=== PATIENT | female | born 1985 | race Caucasian/White ===

== ENCOUNTER 2018-01-06 15:41 | Emergency (ER) | payer BC ==
--- NOTE | 2018-01-06 15:54 | EDM.PDOC ---
ED HPI GENERAL MEDICAL PROBLEM - General Chief Complaint: Abdominal Pain Stated Complaint: ABDOMINAL PAIN Time Seen by Provider: 01/06/18 15:44 Source of Information: Reports: Patient History Limitations: Reports: No Limitations - History of Present Illness INITIAL COMMENTS - FREE TEXT/NARRATIVE: HISTORY AND PHYSICAL: History of present illness: Patient is a 32-year-old female who presents to the emergency room with complaints of fatigue, epigastric pain that radiates into the sternum, generalized abdominal pain, nausea, and sore throat. Prior to coming to our emergency room she was at the [facility] office with Dr. Vaz, as she was having a preoperative exam to have a hysterectomy (scheduled in 2 weeks due to her endometriosis). She denies any headache, fever, chills, near syncope, shortness of breath, vomiting or diarrhea. States she has had a decrease in appetite, but is still eating and drinking appropriately. No urinary or bowel complaints or concerns. Has not received the influenza vaccine this year. Review of systems: As per history of present illness and below otherwise all systems reviewed and negative. Past medical history: As per history of present illness and as reviewed below otherwise noncontributory. Surgical history: As per history of present illness and as reviewed below otherwise noncontributory. Social history: No reported history of drug or alcohol abuse. Family history: As per history of present illness and as reviewed below otherwise noncontributory. Physical exam: General: Well-developed and well-nourished 32-year-old female. Alert and oriented. Nontoxic appearing and in no acute distress. HEENT: Atraumatic, normocephalic, pupils reactive, negative for conjunctival pallor or scleral icterus, mucous membranes moist, throat clear, neck supple, nontender, trachea midline. Lungs: Clear to auscultation, breath sounds equal bilaterally, chest nontender. Heart: S1S2, regular rate and rhythm without overt murmur. Abdomen: Soft, nondistended, mild tenderness to the left lower quadrant with palpation (she reports always tender there as "this is where my endometriosis flairs up at"). Negative for masses or hepatosplenomegaly. Negative for costovertebral tenderness. Pelvis: Stable nontender. Genitourinary: Deferred. Rectal: Deferred. Extremities: Atraumatic, moves all extremities per self without difficulty or deficits, negative for cords or calf pain. Neurovascular unremarkable. Neuro: Awake, alert, oriented. Cranial nerves II through XII unremarkable. Cerebellum unremarkable. Motor and sensory unremarkable throughout. Exam nonfocal. CBC, CMP, H pylori, lipase, UA, mono, and troponin are normal and within normal limits. Amylase is slightly elevated at 94. EKG shows no significant findings, normal sinus rhythm. Influenza and strep screen are negative. CXR shows no evidence of pneumonia or infiltrate. Vital signs remain stable. Pain has improved and she feels slightly better with pain at a 2/10. As the patient has no specific abdominal pain, except in the LLQ (which she reports is chronic) - NO CT is needed at this time. Pt agrees. Lab results were shared with the patient. She states she feels comfortable going home at this time. Encouraged her to get plenty of rest, drink fluids and take over-the- counter omeprazole daily until she follows up with Dr Vaz before her surgery. We'll prescribe Zofran as needed for nausea. Diagnostics: CBC, CMP, amylase, lipase, troponin, lipase, h.pylori, EKG, influenza, strep, mono-spot Therapeutics: IV fluid, GI cocktail, Toradol Impression: 1) Abdominal pain, non-specific 2) Viral Illness Plan: 1. Today's lab work was within normal limits. Your symptoms appear to be viral in nature. I would like to take a proton pump inhibitor such as Prilosec or Omeprozole daily. Divide diet for the next 24-48 hours. Increase your oral fluids. Did prescribe Zofran for nausea. You may take one tab every 6 hours as needed. 2. Keep your follow-up appointment with Dr. Vaz for your scheduled Hysterectomy. 3. Return to the ED as needed and as discussed. Definitive disposition and diagnosis as appropriate pending reevaluation and review of above. Duration: Day(s): Location: Reports: Abdomen Mid Sternal Chest Pain/Epigastric Pain Score (Numeric/FACES): 5 - Related Data Allergies Allergy/AdvReac Type Severity Reaction Status Date / Time No Known Allergies Allergy Verified 01/06/18 15:59 Home Meds: Home Meds Ondansetron [Zofran ODT] 4 mg PO Q6H PRN #6 tab.dis 01/06/18 [Rx] Past Medical History [facility] History: Reports: Endometriosis, Other OB/BYN History: laparoscopy X 2 Endocrine/Metabolic History: Reports: Obesity/BMI 30+ - Past Surgical History Female Surgical History: Reports: Tubal Ligation Social & Family History - Tobacco Use Smoking Status *Q: Never Smoker Second Hand Smoke Exposure: No - Alcohol Use Days Per Week of Alcohol Use: 0 - Recreational Drug Use Recreational Drug Use: No ED ROS GENERAL - Review of Systems Review Of Systems: ROS reveals no pertinent complaints other than HPI. ED EXAM, GI/ABD - Physical Exam Exam: See Below (See dictation) Course - Vital Signs Last Recorded V/S: Last Vital Signs Temp 99.0 F 01/06/18 17:09 Pulse 82 01/06/18 17:09 Resp 16 01/06/18 17:09 BP 123/67 01/06/18 17:09 Pulse Ox 100 01/06/18 17:09 - Orders/Labs/Meds Orders: Active Orders 24 hr Category Date Time Status EKG Documentation Completion [RC] STAT Care 01/06/18 15:58 Active Chest 1V Frontal [CR] Stat Exams 01/06/18 16:16 Taken CULTURE STREP A CONFIRMATION [RM] Stat Lab 01/06/18 15:45 Results STREP SCRN A RAPID W CULT CONF [RM] Stat Lab 01/06/18 15:45 Results Labs: Laboratory Tests 01/06/18 01/06/18 01/06/18 Range/Units 16:08 16:08 16:08 WBC 4.25 (4.0-11.0) K/uL RBC 4.61 (4.30-5.90) M/uL Hgb 13.7 (12.0-16.0) g/dL Hct 39.8 (36.0-46.0) % MCV 86.3 (80.0-98.0) fL MCH 29.7 (27.0-32.0) pg MCHC 34.4 (31.0-37.0) g/dL RDW Std Deviation 40.9 (28.0-62.0) fl RDW Coeff of Katie 13 (11.0-15.0) % Plt Count 179 (150-400) K/uL MPV 10.20 (7.40-12.00) fL Neut % (Auto) 45.0 L (48.0-80.0) % Lymph % (Auto) 38.6 (16.0-40.0) % Gray % (Auto) 14.1 (0.0-15.0) % Eos % (Auto) 2.1 (0.0-7.0) % Baso % (Auto) 0.2 (0.0-1.5) % Neut # (Auto) 1.9 (1.4-5.7) K/uL Lymph # (Auto) 1.6 (0.6-2.4) K/uL Gray # (Auto) 0.6 (0.0-0.8) K/uL Eos # (Auto) 0.1 (0.0-0.7) K/uL Baso # (Auto) 0.0 (0.0-0.1) K/uL Nucleated RBC % 0.0 /100WBC Nucleated RBCs # 0 K/uL Sodium 140 (136-146) mmol/L Potassium 3.5 (3.5-5.1) mmol/L Chloride 110 (98-110) mmol/L Carbon Dioxide 22 (21-31) mmol/L BUN 5 L (6.0-23.0) mg/dL Creatinine 0.7 (0.6-1.5) mg/dL Est Cr Clr Drug Dosing 102.86 mL/min Estimated GFR (MDRD) > 60.0 ml/min Glucose 81 (60-110) mg/dL Calcium 9.4 (8.8-10.8) mg/dL Total Bilirubin 0.5 (0.1-1.5) mg/dL AST 24 (5-40) IU/L ALT 18 (8-54) IU/L Alkaline Phosphatase 65 (40-150) Troponin I (0.0-0.29) NG/ML Total Protein 7.2 (6.0-8.0) g/dL Albumin 4.1 (3.5-5.0) g/dL Globulin 3.1 (2.0-3.5) g/dL Albumin/Globulin Ratio 1.3 (1.3-2.8) Amylase 94 H (10-90) U/L Lipase 38 (7-80) U/L Urine Color Urine Appearance Urine pH (5.0-8.0) Ur Specific Reva (1.001-1.035) Urine Protein (NEGATIVE) mg/dL Urine Glucose (UA) (NEGATIVE) mg/dL Urine Ketones (NEGATIVE) mg/dL Urine Occult Blood (NEGATIVE) Urine Nitrite (NEGATIVE) Urine Bilirubin (NEGATIVE) Urine Urobilinogen (<2.0) EU/dL Ur Leukocyte Esterase (NEGATIVE) Urine RBC (0-2/HPF) Urine WBC (0-5/HPF) Ur Epithelial Cells (NONE-FEW) Urine Bacteria (NEGATIVE) Urine Mucus (NONE-MOD) H. pylori IgG Antibody NEGATIVE (NEG) Monoscreen (NEG) 01/06/18 01/06/18 01/06/18 Range/Units 16:08 16:08 16:39 WBC (4.0-11.0) K/uL RBC (4.30-5.90) M/uL Hgb (12.0-16.0) g/dL Hct (36.0-46.0) % MCV (80.0-98.0) fL MCH (27.0-32.0) pg MCHC (31.0-37.0) g/dL RDW Std Deviation (28.0-62.0) fl RDW Coeff of Katie (11.0-15.0) % Plt Count (150-400) K/uL MPV (7.40-12.00) fL Neut % (Auto) (48.0-80.0) % Lymph % (Auto) (16.0-40.0) % Gray % (Auto) (0.0-15.0) % Eos % (Auto) (0.0-7.0) % Baso % (Auto) (0.0-1.5) % Neut # (Auto) (1.4-5.7) K/uL Lymph # (Auto) (0.6-2.4) K/uL Gray # (Auto) (0.0-0.8) K/uL Eos # (Auto) (0.0-0.7) K/uL Baso # (Auto) (0.0-0.1) K/uL Nucleated RBC % /100WBC Nucleated RBCs # K/uL Sodium (136-146) mmol/L Potassium (3.5-5.1) mmol/L Chloride (98-110) mmol/L Carbon Dioxide (21-31) mmol/L BUN (6.0-23.0) mg/dL Creatinine (0.6-1.5) mg/dL Est Cr Clr Drug Dosing mL/min Estimated GFR (MDRD) ml/min Glucose (60-110) mg/dL Calcium (8.8-10.8) mg/dL Total Bilirubin (0.1-1.5) mg/dL AST (5-40) IU/L ALT (8-54) IU/L Alkaline Phosphatase (40-150) Troponin I < 0.10 (0.0-0.29) NG/ML Total Protein (6.0-8.0) g/dL Albumin (3.5-5.0) g/dL Globulin (2.0-3.5) g/dL Albumin/Globulin Ratio (1.3-2.8) Amylase (10-90) U/L Lipase (7-80) U/L Urine Color YELLOW Urine Appearance CLEAR Urine pH 7.0 (5.0-8.0) Ur Specific Reva 1.010 (1.001-1.035) Urine Protein NEGATIVE (NEGATIVE) mg/dL Urine Glucose (UA) NEGATIVE (NEGATIVE) mg/dL Urine Ketones TRACE H (NEGATIVE) mg/dL Urine Occult Blood NEGATIVE (NEGATIVE) Urine Nitrite NEGATIVE (NEGATIVE) Urine Bilirubin NEGATIVE (NEGATIVE) Urine Urobilinogen 0.2 (<2.0) EU/dL Ur Leukocyte Esterase NEGATIVE (NEGATIVE) Urine RBC NONE SEEN (0-2/HPF) Urine WBC 0-1 (0-5/HPF) Ur Epithelial Cells RARE (NONE-FEW) Urine Bacteria RARE (NEGATIVE) Urine Mucus LIGHT (NONE-MOD) H. pylori IgG Antibody (NEG) Monoscreen NEGATIVE (NEG) Meds: Medications Discontinued Medications Generic Name Dose Route Start Last Admin Trade Name Freq PRN Reason Stop Dose Admin Al Hydroxide/Mg Hydroxide 15 0 ml 01/06/18 15:58 01/06/18 16:10 ml/ Lidocaine HCl 5 ml PO 01/06/18 15:59 20 each ONETIME ONE Administration Sodium Chloride 1,000 mls @ 999 mls/hr 01/06/18 15:58 01/06/18 16:10 Normal Saline IV 01/06/18 16:58 999 mls/hr STAT ONE Administration Ketorolac Tromethamine 30 mg 01/06/18 17:17 01/06/18 17:26 Toradol IVPUSH 02/07/18 17:18 Not Given ONETIME ONE Departure - Departure Time of Disposition: 17:30 Disposition: Home, Self-Care 01 Clinical Impression: Pain, abdominal, nonspecific, Viral illness - Discharge Information Prescriptions: Ondansetron [Zofran ODT] 4 mg PO Q6H PRN #6 tab.dis PRN Reason: Nausea Referrals: Pio Henry MD [Primary Care Provider] - Forms: ED Department Discharge Additional Instructions: My general discharge The following information is given to patients seen in the emergency department who are being discharged to home. This information is to outline your options for follow-up care. We provide all patients seen in our emergency department with a follow-up referral. The need for follow-up, as well as the timing and circumstances, are variable depending upon the specifics of your emergency department visit. If you don't have a primary care physician on staff, we will provide you with a referral. We always advise you to contact your personal physician following an emergency department visit to inform them of the circumstance of the visit and for follow-up with them and/or the need for any referrals to a consulting specialist. The emergency department will also refer you to a specialist when appropriate. This referral assures that you have the opportunity for follow-up care with a specialist. All of these measure are taken in an effort to provide you with optimal care, which includes your follow-up. Under all circumstances we always encourage you to contact your private physician who remains a resource for coordinating your care. When calling for follow-up care, please make the office aware that this follow-up is from your recent emergency room visit. If for any reason you are refused follow-up, please contact the [facility] Emergency Department at and asked to speak to the emergency department charge nurse. [facility] [address] [place] [id number] 1. Today's lab work was within normal limits. Your symptoms appear to be viral in nature. I would like to take a proton pump inhibitor such as Prilosec or Omeprozole daily. Divide diet for the next 24-48 hours. Increase your oral fluids. Zofran was prescribed for nausea. You may take one tab every 6 hours as needed. 2. Keep your follow-up appointment with Dr. Vaz for your scheduled Hysterectomy. 3. Return to the ED as needed and as discussed. - My Orders Last 24 Hours: My Active Orders 01/06/18 15:45 CULTURE STREP A CONFIRMATION [RM] Stat STREP SCRN A RAPID W CULT CONF [RM] Stat 01/06/18 15:58 EKG Documentation Completion [RC] STAT 01/06/18 16:16 Chest 1V Frontal [CR] Stat - Assessment/Plan Last 24 Hours: My Active Orders 01/06/18 15:45 CULTURE STREP A CONFIRMATION [RM] Stat STREP SCRN A RAPID W CULT CONF [RM] Stat 01/06/18 15:58 EKG Documentation Completion [RC] STAT 01/06/18 16:16 Chest 1V Frontal [CR] Stat
[2018-01-06] MEDS ORDERED: Sodium Chloride 0.9% 1,000 ML IV ONE (15:58)
[2018-01-06] MEDS ORDERED: Alum Hydrox/Mag Hydrox/Simeth 15 ML, Lidocaine 2% 5 ML PO ONE ×2 (15:58)
[2018-01-06 16:44] LABS: CHLORIDE,CL 110 mmol/L (98-110); SODIUM,NA 140 mmol/L (136-146)
[2018-01-06] MEDS ORDERED: Ketorolac 30 MG/ML SDV IVPUSH ONE (17:17)
[2018-01-06 17:55] VITALS: BP 121/83
--- NOTE | 2018-01-07 09:31 | CR ---
EXAM DATE: 01/06/18 PATIENT'S AGE: 32 Patient: SAIDA BOLANOS Facility: [place], [place] Site . Site : 1985 Study: XRay Chest [id number]/7/2018 4:43:04 PM Ordering Physician: Doctor Cardona Final Report: HISTORY: Chest pain. FINDINGS: AP chest radiograph demonstrates low lung volumes. The cardiac silhouette is normal. No lobar consolidation or pleural effusion is seen. IMPRESSION: No acute cardiopulmonary disease. Dictated by Hali Oneal MD @ 01/06/2018 4:47:11 PM Dictated by: Hali Oneal MD @ 01/06/2018 16:47:16 (Electronic Signature) Report Signed by Proxy. [facility]ITAL[facility]
== END 2018-01-06 18:00 | disposition home or self-care (01) ==
LOC: MW.ED 15:41
DX: B34.9 Viral infection, unspecified (principal)
CPT/HCPCS: 36415; 71045; 80053; 81001; 82150; 83690; 84484; 85025; 86308; 86677; 87081; 87804; 87880; 96360; 99285; A9270; J7040; 99284

== ENCOUNTER 2018-01-19 07:41 | Observation (INO) | payer BC ==
[2018-01-18 16:26] LABS: CHLORIDE,CL 109 mmol/L (98-110); SODIUM,NA 140 mmol/L (136-146)
[~2018-01-19 07:41] MED LIST: Bupivacaine 0.25% 10 ML SDV ONE; Lidocaine 2% 5 ML SDV ONE; Methylene Blue 50 MG/10 ML Ampule ONE; Midazolam 1 MG/ML 2 ML SDV ONE; Ondansetron 4 MG/2 ML SDV ONE; Propofol 200 MG/20 ML SDV ONE; Rocuronium 10 MG/ML 10 ML Syringe ONE; Sodium Chloride 0.9% 10 ML Syringe FLUSH PRN; Sodium Chloride 0.9% 2.5 ML Syringe FLUSH PRN; ceFAZolin 2 GM in Premix Bag 1 BAG IV ONE; fentaNYL 250 MCG/5 ML SDV ONE
[2018-01-19] MEDS: Lactated Ringers 1,000 ML IV SCH ×2 (08:02→16:33)
[2018-01-19] MEDS ORDERED: Scopolamine 1.5 MG Transdermal Patch TRDERM PRN (08:27)
--- NOTE | 2018-01-19 08:30 | PCM.PREANE ---
Preanesthetic Assessment - Anesthesia/Transfusion/Family Hx Anesthesia History: Prior Anesthesia Without Reaction Family History of Anesthesia Reaction: No Transfusion History: No Prior Transfusion(s) Intubation History: Unknown - Review of Systems General: No Symptoms Pulmonary: No Symptoms Cardiovascular: No Symptoms Gastrointestinal: No Symptoms Neurological: No Symptoms Other: Reports: None - Physical Assessment NPO Status Date: 01/18/18 NPO Status Time: 20:00 O2 Sat by Pulse Oximetry: 98 Respiratory Rate: 16 Vital Signs: Last Vital Signs Temp 36.9 C 01/19/18 07:58 Pulse 81 01/19/18 07:58 Resp 16 01/19/18 07:58 BP 119/73 01/19/18 07:58 Pulse Ox 98 01/19/18 07:58 Height: 1.64 m Weight: 93.44 kg ASA Class: 2 Mental Status: Alert & Oriented x3 Airway Class: Mallampati = 2 Dentition: Reports: Normal Dentition Thyro-Mental Finger Breadths: 3 Mouth Opening Finger Breadths: 2 ROM/Head Extension: Full Lungs: Clear to Auscultation, Normal Respiratory Effort Cardiovascular: Regular Rate, Regular Rhythm - Lab Values: Laboratory Last Values WBC 6.71 K/uL (4.0-11.0) 01/18/18 15:50 RBC 4.96 M/uL (4.30-5.90) 01/18/18 15:50 Hgb 15.1 g/dL (12.0-16.0) 01/18/18 15:50 Hct 42.8 % (36.0-46.0) 01/18/18 15:50 MCV 86.3 fL (80.0-98.0) 01/18/18 15:50 MCH 30.4 pg (27.0-32.0) 01/18/18 15:50 MCHC 35.3 g/dL (31.0-37.0) 01/18/18 15:50 RDW Std Deviation 41.1 fl (28.0-62.0) 01/18/18 15:50 RDW Coeff of Katie 13 % (11.0-15.0) 01/18/18 15:50 Plt Count 232 K/uL (150-400) 01/18/18 15:50 MPV 10.20 fL (7.40-12.00) 01/18/18 15:50 Nucleated RBC % 0.0 /100WBC 01/18/18 15:50 Nucleated RBCs # 0 K/uL 01/18/18 15:50 Sodium 140 mmol/L (136-146) 01/18/18 15:50 Potassium 3.6 mmol/L (3.5-5.1) 01/18/18 15:50 Chloride 109 mmol/L (98-110) 01/18/18 15:50 Carbon Dioxide 22 mmol/L (21-31) 01/18/18 15:50 BUN 7 mg/dL (6.0-23.0) 01/18/18 15:50 Creatinine 0.7 mg/dL (0.6-1.5) 01/18/18 15:50 Est Cr Clr Drug Dosing TNP 01/18/18 15:50 Estimated GFR (MDRD) > 60.0 ml/min 01/18/18 15:50 Glucose 93 mg/dL (60-110) 01/18/18 15:50 Calcium 9.0 mg/dL (8.8-10.8) 01/18/18 15:50 HCG, Qual NEGATIVE (NEG) 01/18/18 15:50 Blood Type A POSITIVE 01/18/18 15:50 Antibody Screen NEGATIVE 01/18/18 15:50 - Allergies Allergies/Adverse Reactions: Allergies Allergy/AdvReac Type Severity Reaction Status Date / Time No Known Allergies Allergy Verified 01/13/18 12:54 - Blood Blood Available: No - Anesthesia Plan Pre-Op Medication Ordered: None - Acknowledgements Anesthesia Type Planned: General Anesthesia Pt an Appropriate Candidate for the Planned Anesthesia: Yes Alternatives and Risks of Anesthesia Discussed w Pt/Guardian: Yes Pt/Guardian Understands and Agrees with Anesthesia Plan: Yes PreAnesthesia Questionnaire HEENT History: Reports: Other (See Below) Other HEENT History: wears glasses Gastrointestinal History: Reports: Other (See Below) Other Gastrointestinal History: occasional heartburn Genitourinary History: Reports: None 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, Other OB/BYN History: laparoscopy X 2 Neurological History: Reports: Seizure Other Neuro History: seizures as a child Endocrine/Metabolic History: Reports: Obesity/BMI 30+ - Past Surgical History Head Surgeries/Procedures: Reports: None GI Surgical History: Reports: Colonoscopy (x2), EGD Female Surgical History: Reports: Tubal Ligation Other Female Surgeries/Procedures: laparoscopy x2 for endometriosis - SUBSTANCE USE Smoking Status *Q: Never Smoker Second Hand Smoke Exposure: No Days Per Week of Alcohol Use: 0 Recreational Drug Use History: No - HOME MEDS Home Medications: Home Meds Magnesium 1 tab PO DAILY 01/13/18 [History] Multivitamin [Multivitamins] 1 tab PO DAILY 01/13/18 [History] - CURRENT (IN HOUSE) MEDS Current Meds: Current Medications Lactated Ringer's (Ringers, Lactated) 1,000 mls @ 125 mls/hr IV ASDIRECTED MILLICENT Last Admin: 01/19/18 08:02 Dose: 125 mls/hr Sodium Chloride (Saline Flush) 10 ml FLUSH ASDIRECTED PRN PRN Reason: Keep Vein Open Sodium Chloride (Saline Flush) 2.5 ml FLUSH ASDIRECTED PRN PRN Reason: Keep Vein Open Discontinued Medications Bupivacaine HCl (Sensorcaine-Mpf 0.25%) Confirm Administered Dose 20 ml .ROUTE .STK-MED ONE Stop: 01/19/18 07:23 Fentanyl (Sublimaze) Confirm Administered Dose 250 mcg .ROUTE .STK-MED ONE Stop: 01/19/18 07:07 Cefazolin Sodium/Dextrose 2 gm (/ Premix) 50 mls @ 100 mls/hr IV ONETIME ONE Stop: 01/19/18 06:29 Lidocaine (Xylocaine-Mpf 2%) Confirm Administered Dose 5 ml .ROUTE .STK-MED ONE Stop: 01/19/18 07:07 Methylene Blue (Provayblue) Confirm Administered Dose 50 mg .ROUTE .STK-MED ONE Stop: 01/19/18 07:23 Midazolam HCl (Versed 1 Mg/Ml) Confirm Administered Dose 2 mg .ROUTE .STK-MED ONE Stop: 01/19/18 07:07 Ondansetron HCl (Zofran) Confirm Administered Dose 4 mg .ROUTE .STK-MED ONE Stop: 01/19/18 07:07 Propofol (Diprivan 20 Ml) Confirm Administered Dose 200 mg .ROUTE .STK-MED ONE Stop: 01/19/18 07:07 Rocuronium Reading (Zemuron) Confirm Administered Dose 100 mg .ROUTE .STK-MED ONE Stop: 01/19/18 07:07
[2018-01-19] MEDS ORDERED: Scopolamine 1.5 MG Transdermal Patch ONE (08:38)
[2018-01-19] MEDS ORDERED: ceFAZolin 1 GM Vial ONE (08:53)
[2018-01-19] MEDS ORDERED: diphenhydrAMINE 50 MG/ML SDV ONE (08:55)
[2018-01-19] MEDS ORDERED: Dexamethasone 4 MG/ML 5 ML MDV ONE (08:55)
[2018-01-19] MEDS ORDERED: Phenylephrine/Normal Saline 100 MCG/ML 10 ML Syringe ONE (08:55)
[2018-01-19] MEDS ORDERED: Fluorescein 5 ML Vial ONE (09:03)
[2018-01-19] MEDS ORDERED: HYDROmorphone 2 MG/ML SDV ONE (09:13)
[2018-01-19] MEDS ORDERED: Furosemide 40 MG/4 ML VIAL ONE (09:24)
[2018-01-19] MEDS ORDERED: Ketorolac 30 MG/ML SDV ONE (10:20)
[2018-01-19] MEDS ORDERED: Promethazine 25 MG/ML SDV IM PRN (10:49)
[2018-01-19] MEDS ORDERED: Ketorolac 30 MG/ML SDV IVPUSH ONE (10:49)
[2018-01-19] MEDS ORDERED: Morphine 2 MG/ML Syringe IVPUSH PRN (10:49)
[2018-01-19] MEDS ORDERED: Acetaminophen/oxyCODONE 325-5 MG Tab PO PRN (10:49)
[2018-01-19] MEDS ORDERED: Morphine 4 MG/ML Syringe IVPUSH PRN (10:49)
--- NOTE | 2018-01-19 10:49 | PCM.OPNOTE ---
- General Post-Op/Procedure Note Date of Surgery/Procedure: 01/19/18 Operative Procedure(s): laparoscopically assisted vaginal hysterectomy with bilateral salpingoophorectomy and cystoscopy Findings: Uterus 10 weeks size, boggy, right ovary adherent to the peritoneum. Endometriotic implants in posterior cul de sac, No evidence of trauma to the bladder mucosa, bilateral ureteral orifices with copious flow of bright green urine after IV fluoroscein. Pre Op Diagnosis: Endometriosis, pelvic pain Post-Op Diagnosis: Same Anesthesia Technique: General ET Tube Primary Surgeon: Zenaida Vaz Secondary Surgeon: Aida Appiah Anesthesia Provider: Kathy Martinez Pathology: Uterus, tubes and ovaries Fluid Replacement, Intraop: 2,200 Output, Urine Amount: 75 EBL in mLs: 250 Complications: None Known Condition: Good
[2018-01-19] MEDS: fentaNYL 100 MCG/2 ML SDV IVPUSH PRN ×2 (11:11→11:16)
[2018-01-19] MEDS: Ondansetron 4 MG/2 ML SDV IVPUSH PRN ×2 (12:23→21:28)
[2018-01-19] MEDS: Acetaminophen/oxyCODONE 325-5 MG Tab PO PRN ×2 (13:52→21:13)
--- NOTE | 2018-01-19 14:48 | PCM48HPAN ---
Post Anesthesia Note - EVALUATION WITHIN 48HRS OF ANESTHETIC Vital Signs in Normal Range: Yes Patient Participated in Evaluation: Yes Respiratory Function Stable: Yes Airway Patent: Yes Cardiovascular Function Stable: Yes Hydration Status Stable: Yes Pain Control Satisfactory: Yes Nausea and Vomiting Control Satisfactory: Yes Mental Status Recovered: Yes Resp Rate: 15
--- NOTE | 2018-01-19 16:23 | OR ---
SURGEON: Zenaida Vaz M.D. DATE OF PROCEDURE: 01/19/2018 PREOPERATIVE DIAGNOSES: 1. Pelvic pain. 2. Endometriosis. POSTOPERATIVE DIAGNOSES: 1. Pelvic pain. 2. Endometriosis. PROCEDURES PERFORMED: Laparoscopically assisted vaginal hysterectomy with bilateral salpingo- oophorectomy and cystoscopy. ANESTHESIA: General endotracheal. FLUIDS: 1200 mL crystalloid. ESTIMATED BLOOD LOSS: 250 mL. URINE OUTPUT: 75 mL. FINDINGS: The uterus was enlarged to 10 weeks size, boggy. There were endometriotic implants in the posterior cul-de-sac. The right ovary was adherent to the peritoneum. On cystoscopy, there was copious flow of bright green urine from bilateral ureters. There was no evidence of any trauma to the bladder mucosa. COMPLICATIONS: None known. DISPOSITION: Stable to recovery. BRIEF HISTORY: This is a 32-year-old female with a long history of endometriosis. She has completed childbearing, she has had a prior tubal ligation. She has had multiple treatments for endometriosis including laparoscopic ablation, Lupron, letrozole, and evaluation by bank vault attendant. She does not tolerate any of these treatments well. She continues to have pelvic pain, dyspareunia, and desires to proceed with definitive therapy by hysterectomy. She understands that in order to completely treat the endometriosis that the ovaries must be removed, which will make her permanently menopausal. She understands that I will go ahead and replace with an estradiol patch and we might need to adjust her hormones from there. Risks of the surgery were discussed including bleeding, infection, injury to bowel, bladder, blood vessels, ureters or other organs, risk of thromboembolic event, risk of anesthesia, and risk of change in sexual function. Understanding all these risks, she does desire to proceed. DESCRIPTION OF PROCEDURE: With the patient in dorsal lithotomy position, under adequate general tracheal anesthesia. The perineum and vagina were prepped with Betadine. The abdomen was prepped with chlorhexidine and draped in usual fashion for a laparoscopically-assisted vaginal surgery. An appropriate time-out was held. Bimanual examination revealed a 10-week size, anteverted, boggy uterus. Speculum was placed into the vagina. The cervix was grasped with an Allis clamp and the ZUMI uterine manipulator was placed to the uterine fundus which measured 9 cm. The speculum was removed and flexboard operator's gloves were changed. She had a Bradley catheter which had been placed and backfilled with 30 mL of dilute methylene blue. SCDs were in place and she had also received 2 g of Ancef prior to starting the surgery. After flexboard operator's gloves were changed, attention was then turned abdominally, where a 5 mm incision was made inferior to the umbilicus. Anterior abdominal wall was elevated. Veress needle was inserted. CO2 was started at low flow after hanging drop test confirmed intraperitoneal placement. Opening pressure was 2 mmHg. CO2 was changed to high flow to develop an adequate pneumoperitoneum of 13 mmHg. A 5 mm port was then placed and the laparoscope was placed into the abdominal cavity. There was no evidence of any trauma from the port placement site. Two additional ports were placed 2 cm medial and cephalad from the anterior superior iliac spine on the right and the left. The uterus was elevated, the ureters were identified. On the right, the ovary was adherent to the peritoneum of the ovarian fossa just above the level of the ureter. This was carefully dissected placing the LigaSure behind the adhesion and cross clamping the adhesion, pulling it well away from the ureter and the pelvic sidewall and then coagulating and cutting. This was performed until the ovary was free and could be elevated well above the ureter. The infundibulopelvic ligament was then cross clamped, doubly coagulated with the LigaSure and cut. Then proceeding proximally to the uterus then cross clamping and cutting the round ligament, entering the broad ligament and opening the anterior leaf of the broad ligament and the posterior leaf of the broad ligament allowing skeletonization of the uterine vessels, which were then doubly coagulated and cut. Hydrodissection was then used to enter the lower anterior fold of the peritoneum. Once hydrodissection was complete, the LigaSure was utilized to continue to incise the peritoneum immediately adjacent to the uterus. This being completed, the same process was repeated on the opposite side. However, this ovary was completely mobile and once the hydrodissection was completed on the left, the peritoneal reflection was then opened completely across reaching across to the right side. This being completed, the abdomen was desufflated. The instruments have been removed and the ports were opened. The attention was then turned vaginally where a weighted speculum was placed posteriorly. The clamp on the bladder was released and the right angle retractor was placed anteriorly and the cervix was grasped with a Larry tenaculum. It was circumscribed using electrocautery. With blunt dissection, I was able to enter the previously established smooth peritoneal surface of the anterior uterine serosa and the right angle retractor was placed into the peritoneal cavity. The posterior cul-de-sac was then entered using sharp dissection. The Tamy Auvard speculum was then placed posteriorly. The uterosacral ligaments were then cross clamped, cut, and ligated using a Chet ligature of 0 Polysorb. There was a small pedicle remaining on the right and the left that was cross clamped, cut, and ligated using a Chet ligature of 0 Polysorb. The retained uterosacral ligaments were then ligated to the vaginal apices bilaterally. There was an area of bleeding anterior to the right uterosacral ligament that was carefully isolated. The blood vessel was then grasped with a Chet clamp, utilizing as minimal tissue as possible and then ligated using a Chet ligature of 2-0 Polysorb. This being completed, the pelvis was hemostatic, therefore the short speculum was placed. The vaginal mucosa was closed with a running lock suture of 0 Polysorb and the cystoscopy was then performed after IV fluorescein had been given as well as Lasix. Using sterile water as a distending medium, the entire bladder mucosa was inspected. There was no evidence of any trauma to the bladder mucosa. Bilateral ureteral orifices were identified. There was copious flow of urine followed by bright green urine after the fluorescein had circulated. Therefore the cystoscope was removed and a new catheter was placed. The speculum was again placed in the vagina and the vaginal cuff was hemostatic. Casino Enforcement Agent's gloves were again changed and attention was turned abdominally and the abdomen was re-insufflated. Careful inspection of the pelvis with copious irrigation under high and low pressure revealed complete hemostasis. Therefore, the abdomen was desufflated. The port sites were closed with a running subcuticular suture of 4-0 Caprosyn. Final sponge, needle, and instrument counts were reported as correct. There were no known complications. The patient was transferred to recovery in good condition. REEMA GUERRERO /[id number]
[2018-01-19] MEDS: Ketorolac 30 MG/ML SDV IVPUSH SCH ×2 (17:19→17:32)
--- NOTE | 2018-01-19 17:30 | PCM.SN ---
- Free Text/Narrative Note: POD#0 after LAVH/BSO, stable, pain well controlled, has ambulated and tolerated clear, will try regular diet tonight. Reviewed operative findings. Continue with oral pain medications, anticipate discharge in am.
[2018-01-20] MEDS: Ketorolac 30 MG/ML SDV IVPUSH SCH ×3 (05:27→10:17)
[2018-01-20 05:37] LABS: CHLORIDE,CL 108 mmol/L (98-110); SODIUM,NA 136 mmol/L (136-146)
--- NOTE | 2018-01-20 08:30 | PCM.SURGPN ---
- General Info Date of Service: 01/20/18 Date of Surgery/Procedure: 01/19/18 POD#: 1 Post-Op Diagnosis: endometriosis, pelvic pain Functional Status: Reports: Pain Controlled, Tolerating Diet, Ambulating, Urinating, Other (hot flashes are well controlled on estradiol patch.) - Review of Systems General: Reports: No Symptoms HEENT: Reports: No Symptoms Pulmonary: Reports: No Symptoms Cardiovascular: Reports: No Symptoms Gastrointestinal: Reports: No Symptoms Genitourinary: Reports: No Symptoms Musculoskeletal: Reports: No Symptoms Skin: Reports: No Symptoms Neurological: Reports: No Symptoms Psychiatric: Reports: No Symptoms - Patient Data Vitals - Most Recent: Last Vital Signs Temp 37.0 C 01/20/18 08:03 Pulse 64 01/20/18 08:03 Resp 13 01/20/18 08:03 BP 101/60 01/20/18 08:03 Pulse Ox 94 L 01/20/18 08:03 Weight - Most Recent: 93.44 kg I&O - Last 24 Hours: Intake & Output 01/19/18 01/20/18 01/20/18 22:59 06:59 14:59 Intake Total 1080 1200 Output Total 1600 1400 Balance -520 -200 Lab Results Last 24 Hrs: Laboratory Results - last 24 hr 01/20/18 01/20/18 Range/Units 04:54 04:54 WBC 8.61 (4.0-11.0) K/uL RBC 4.07 L (4.30-5.90) M/uL Hgb 11.9 L (12.0-16.0) g/dL Hct 35.6 L (36.0-46.0) % MCV 87.5 (80.0-98.0) fL MCH 29.2 (27.0-32.0) pg MCHC 33.4 (31.0-37.0) g/dL RDW Std Deviation 41.9 (28.0-62.0) fl RDW Coeff of Katie 13 (11.0-15.0) % Plt Count 226 (150-400) K/uL MPV 10.60 (7.40-12.00) fL Neut % (Auto) 75.5 (48.0-80.0) % Lymph % (Auto) 13.8 L (16.0-40.0) % [place] % (Auto) 10.5 (0.0-15.0) % Eos % (Auto) 0.1 (0.0-7.0) % Baso % (Auto) 0.1 (0.0-1.5) % Neut # (Auto) 6.5 H (1.4-5.7) K/uL Lymph # (Auto) 1.2 (0.6-2.4) K/uL [place] # (Auto) 0.9 H (0.0-0.8) K/uL Eos # (Auto) 0.0 (0.0-0.7) K/uL Baso # (Auto) 0.0 (0.0-0.1) K/uL Nucleated RBC % 0.0 /100WBC Nucleated RBCs # 0 K/uL Sodium 136 (136-146) mmol/L Potassium 4.2 (3.5-5.1) mmol/L Chloride 108 (98-110) mmol/L Carbon Dioxide 22 (21-31) mmol/L BUN 9 (6.0-23.0) mg/dL Creatinine 0.7 (0.6-1.5) mg/dL Est Cr Clr Drug Dosing 100.78 mL/min Estimated GFR (MDRD) > 60.0 ml/min Glucose 108 (60-110) mg/dL Calcium 8.8 (8.8-10.8) mg/dL Med Orders - Current: Current Medications Estradiol (Climara) 0.1 mg TRDERM Q7D [facility] Last Admin: 01/19/18 16:28 Dose: 0.1 mg Fentanyl (Sublimaze) 50 mcg IVPUSH .Q5MIN PRN PRN Reason: Pain Last Admin: 01/19/18 11:16 Dose: 50 mcg Lactated Ringer's (Ringers, Lactated) 1,000 mls @ 125 mls/hr IV ASDIRECTED [facility] Last Admin: 01/19/18 16:33 Dose: 125 mls/hr Ketorolac Tromethamine (Toradol) 30 mg IVPUSH Q6H [facility] Stop: 01/24/18 10:49 Last Admin: 01/20/18 05:27 Dose: 30 mg Morphine Sulfate (Morphine) 2 mg IVPUSH Q2H PRN PRN Reason: Pain (severe 7-10) Last Admin: 01/19/18 12:20 Dose: 2 mg Morphine Sulfate (Morphine) 4 mg IVPUSH Q2H PRN PRN Reason: Pain (severe 7-10) Ondansetron HCl (Zofran) 4 mg IVPUSH Q6H PRN PRN Reason: Nausea/Vomiting Last Admin: 01/19/18 21:28 Dose: 4 mg Oxycodone/Acetaminophen (Percocet 325-5 Mg) 1 tab PO Q4H PRN PRN Reason: Pain (moderate 4-6) Oxycodone/Acetaminophen (Percocet 325-5 Mg) 2 tab PO Q4H PRN PRN Reason: Pain (moderate 4-6) Last Admin: 01/19/18 21:13 Dose: 2 tab Promethazine HCl (Phenergan) 25 mg IM Q6H PRN PRN Reason: Nausea/Vomiting Scopolamine (Transderm-Scop) 1.5 mg TRDERM Q72H PRN PRN Reason: Nausea Last Admin: 01/19/18 08:39 Dose: 1.5 mg Sodium Chloride (Saline Flush) 10 ml FLUSH ASDIRECTED PRN PRN Reason: Keep Vein Open Sodium Chloride (Saline Flush) 2.5 ml FLUSH ASDIRECTED PRN PRN Reason: Keep Vein Open Discontinued Medications Bupivacaine HCl (Sensorcaine-Mpf 0.25%) Confirm Administered Dose 20 ml .ROUTE .STK-MED ONE Stop: 01/19/18 07:23 Cefazolin Sodium (Ancef) Confirm Administered Dose 2 gm .ROUTE .STK-MED ONE Stop: 01/19/18 08:54 Dexamethasone (Dexamethasone) Confirm Administered Dose 20 mg .ROUTE .STK-MED ONE Stop: 01/19/18 08:56 Diphenhydramine HCl (Benadryl) Confirm Administered Dose 50 mg .ROUTE .STK-MED ONE Stop: 01/19/18 08:56 Fentanyl (Sublimaze) Confirm Administered Dose 250 mcg .ROUTE .STK-MED ONE Stop: 01/19/18 07:07 Fluorescein Sodium (Ak-Fluor) Confirm Administered Dose 5 ml .ROUTE .STK-MED ONE Stop: 01/19/18 09:04 Furosemide (Lasix) Confirm Administered Dose 40 mg .ROUTE .STK-MED ONE Stop: 01/19/18 09:25 Hydromorphone HCl (Dilaudid) Confirm Administered Dose 2 mg .ROUTE .STK-MED ONE Stop: 01/19/18 09:14 Cefazolin Sodium/Dextrose 2 gm (/ Premix) 50 mls @ 100 mls/hr IV ONETIME ONE Stop: 01/19/18 06:29 Last Admin: 01/19/18 17:18 Dose: Not Given Acetaminophen (Ofirmev) Confirm Administered Dose 100 mls @ as directed IV .STK- MED ONE Stop: 01/19/18 09:05 Ketorolac Tromethamine (Toradol) Confirm Administered Dose 30 mg .ROUTE .STK- MED ONE Stop: 01/19/18 10:21 Ketorolac Tromethamine (Toradol) 30 mg IVPUSH ONETIME ONE Stop: 01/19/18 10:50 Last Admin: 01/19/18 17:18 Dose: Not Given Lidocaine (Xylocaine-Mpf 2%) Confirm Administered Dose 5 ml .ROUTE .STK-MED ONE Stop: 01/19/18 07:07 Methylene Blue (Provayblue) Confirm Administered Dose 50 mg .ROUTE .STK-MED ONE Stop: 01/19/18 07:23 Midazolam HCl (Versed 1 Mg/Ml) Confirm Administered Dose 2 mg .ROUTE .STK-MED ONE Stop: 01/19/18 07:07 Ondansetron HCl (Zofran) Confirm Administered Dose 4 mg .ROUTE .STK-MED ONE Stop: 01/19/18 07:07 Phenylephrine HCl (Phenylephrine In Ns 100 Mcg/Ml) Confirm Administered Dose 1 mg .ROUTE .STK-MED ONE Stop: 01/19/18 08:56 Propofol (Diprivan 20 Ml) Confirm Administered Dose 200 mg .ROUTE .STK-MED ONE Stop: 01/19/18 07:07 Rocuronium [place] (Zemuron) Confirm Administered Dose 100 mg .ROUTE .STK-MED ONE Stop: 01/19/18 07:07 Scopolamine (Transderm-Scop) Confirm Administered Dose 1.5 mg .ROUTE .STK-MED ONE Stop: 01/19/18 08:39 Last Admin: 01/19/18 17:18 Dose: Not Given - Exam Wound/Incisions: Dressing Dry and Intact General: Alert, Oriented Lungs: Clear to Auscultation, Normal Respiratory Effort Cardiovascular: Regular Rate, Regular Rhythm GI/Abdominal Exam: Normal Bowel Sounds, Soft, Non-Tender, No Organomegaly, No Distention, No Abnormal Bruit, No Mass, Pelvis Stable Extremities: Normal Inspection, Normal Range of Motion, Non-Tender, No Pedal Edema, Normal Capillary Refill Skin: Warm, Dry, Intact Neurological: No New Focal Deficit Psy/Mental Status: Alert, Normal Affect, Normal Mood - Problem List & Annotations (1) Endometriosis determined by laparoscopy SNOMED Code(s): 384780904 Code(s): N80.9 - ENDOMETRIOSIS, UNSPECIFIED Status: Acute Current Visit: Yes (2) Pelvic pain SNOMED Code(s): 13567640 Code(s): R10.2 - PELVIC AND PERINEAL PAIN Status: Acute Current Visit: Yes - Problem List Review Problem List Initiated/Reviewed/Updated: Yes - My Orders Last 24 Hours: Active Orders 24 hr Category Date Time Status Antiembolic Devices [RC] PER UNIT ROUTINE Care 01/19/18 10:50 Active Notify Provider Intake and Out [RC] ASDIRECTED Care 01/19/18 10:49 Active Notify Provider Vital Signs [RC] ASDIRECTED Care 01/19/18 10:49 Active Oxygen Therapy [RC] ASDIRECTED Care 01/19/18 10:49 Active RT Incentive Spirometry [RC] Q2HWA Care 01/19/18 10:49 Active Up With Assistance [RC] PER UNIT ROUTINE Care 01/19/18 10:49 Active Up ad Elvira [RC] PER UNIT ROUTINE Care 01/19/18 10:49 Active Urinary Catheter Removal [RC] Per Unit Routine Care 01/19/18 10:49 Active Regular Diet [DIET] Diet 01/19/18 Dinner Active Acetaminophen/oxyCODONE [Percocet 325-5 MG] Med 01/19/18 10:49 Active 1 tab PO Q4H PRN Acetaminophen/oxyCODONE [Percocet 325-5 MG] Med 01/19/18 10:49 Active 2 tab PO Q4H PRN Estradiol [Climara] Med 01/19/18 11:45 Active 0.1 mg TRDERM Q7D Ketorolac [Toradol] Med 01/19/18 11:00 Active 30 mg IVPUSH Q6H Lactated Ringers [Ringers, Lactated] 1,000 ml Med 01/19/18 07:30 Active IV ASDIRECTED Morphine Med 01/19/18 10:49 Active 2 mg IVPUSH Q2H PRN Morphine Med 01/19/18 10:49 Active 4 mg IVPUSH Q2H PRN Ondansetron [Zofran] Med 01/19/18 10:49 Active 4 mg IVPUSH Q6H PRN Promethazine [Phenergan] Med 01/19/18 10:49 Active 25 mg IM Q6H PRN Scopolamine [Transderm-Scop] Med 01/19/18 08:27 Active 1.5 mg TRDERM Q72H PRN fentaNYL [Sublimaze] Med 01/19/18 09:23 Active 50 mcg IVPUSH .Q5MIN PRN K Pad [Heat Therapy] [OM.PC] Routine Oth 01/19/18 17:31 Ordered Peripheral IV Discontinue [OM.PC] Routine Oth 01/19/18 10:49 Ordered Sequential Compression Device [OM.PC] Per Unit Routine Oth 01/19/18 10:49 Ordered Resuscitation Status Routine Resus Stat 01/19/18 10:49 Ordered Medication Orders Estradiol (Climara) 0.1 mg TRDERM Q7D [facility] Last Admin: 01/19/18 16:28 Dose: 0.1 mg Fentanyl (Sublimaze) 50 mcg IVPUSH .Q5MIN PRN PRN Reason: Pain Last Admin: 01/19/18 11:16 Dose: 50 mcg Admin: 01/19/18 11:11 Dose: 50 mcg Lactated Ringer's (Ringers, Lactated) 1,000 mls @ 125 mls/hr IV ASDIRECTED [facility] Last Admin: 01/19/18 16:33 Dose: 125 mls/hr Infusion: 01/19/18 16:02 Dose: 125 mls/hr Admin: 01/19/18 08:02 Dose: 125 mls/hr Ketorolac Tromethamine (Toradol) 30 mg IVPUSH Q6H [facility] Stop: 01/24/18 10:49 Last Admin: 01/20/18 05:27 Dose: 30 mg Admin: 01/20/18 00:00 Dose: 30 mg Admin: 01/19/18 17:32 Dose: 30 mg Admin: 01/19/18 17:19 Dose: Morphine Sulfate (Morphine) 2 mg IVPUSH Q2H PRN PRN Reason: Pain (severe 7-10) Last Admin: 01/19/18 12:20 Dose: 2 mg Morphine Sulfate (Morphine) 4 mg IVPUSH Q2H PRN PRN Reason: Pain (severe 7-10) Ondansetron HCl (Zofran) 4 mg IVPUSH Q6H PRN PRN Reason: Nausea/Vomiting Last Admin: 01/19/18 21:28 Dose: 4 mg Admin: 01/19/18 12:23 Dose: 4 mg Oxycodone/Acetaminophen (Percocet 325-5 Mg) 1 tab PO Q4H PRN PRN Reason: Pain (moderate 4-6) Oxycodone/Acetaminophen (Percocet 325-5 Mg) 2 tab PO Q4H PRN PRN Reason: Pain (moderate 4-6) Last Admin: 01/19/18 21:13 Dose: 2 tab Admin: 01/19/18 13:52 Dose: 2 tab Promethazine HCl (Phenergan) 25 mg IM Q6H PRN PRN Reason: Nausea/Vomiting Scopolamine (Transderm-Scop) 1.5 mg TRDERM Q72H PRN PRN Reason: Nausea Last Admin: 01/19/18 08:39 Dose: 1.5 mg Sodium Chloride (Saline Flush) 10 ml FLUSH ASDIRECTED PRN PRN Reason: Keep Vein Open Sodium Chloride (Saline Flush) 2.5 ml FLUSH ASDIRECTED PRN PRN Reason: Keep Vein Open - Assessment Assessment (Free Text/Narrative):: POD#1 after LAVH/BSO for endometriosis. Stable, tolerating diet, ambulating and urination, labs and vitals are stable. Doing well with estrogen replacement. - Plan Plan (Free Text/Narrative):: Dismiss to home today, discharge instructions reviewed.
[2018-01-20 12:01] VITALS: BP 103/66
== END 2018-01-20 12:30 | disposition home or self-care (01) ==
LOC: MW.SDS 07:41 → MW.MS 12:13
PROVIDERS: ADMIT Obstetrics & Gynecology; ATTEND Obstetrics & Gynecology
DX: N87.9 Dysplasia of cervix uteri, unspecified (principal); N83.02 Follicular cyst of left ovary; N80.3 Endometriosis of pelvic peritoneum; R56.9 Unspecified convulsions; E66.9 Obesity, unspecified; Z68.34 Body mass index [BMI] 34.0-34.9, adult; Z98.890 Other specified postprocedural states; Z79.899 Other long term (current) drug therapy; Z82.3 Family history of stroke; Z82.49 Family history of ischemic heart disease and other diseases of the circulatory system
CPT/HCPCS: 36415; 58552; 80048; 84703; 85025; 85027; 86850; 86900; 86901; A9270; J0690; J1100; J1170; J1200; J1885; J1940; J2250; J2270; J2405; J3010; J7120; 00840; 88307; J2704